=== PATIENT | female | born 1965 | race Caucasian/White ===

== ENCOUNTER → 2016-08-17 | Outpatient (CLI) | payer BC ==
[~2016-08-17] MED LIST: Iopamidol 755 MG/ML 50 ML Bottle IV STA
--- NOTE | 2016-08-17 14:52 | US ---
EXAMINATION: Right upper quadrant ultrasound HISTORY: Abnormal serum enzymes COMPARISON: CT dated 01/26/2016 TECHNIQUE: Grayscale and color Doppler images obtained of the right upper quadrant. FINDINGS: The visualized pancreas appears normal. The liver is moderately increased in generalized e chotexture. There is a lobulated cyst noted within the liver, comparable to the previous CT. Cholecy stectomy. Common bile duct measures 6 mm. The right kidney measures 11.3 cm [id number] without alicia dence of hydronephrosis. No abdominal ascites. IMPRESSION: 1. Moderate fatty infiltration of the liver. 2. Stable hepatic cysts. 3. No acute findings.
--- NOTE | 2016-08-20 17:52 | US ---
EXAMINATION: Carotid US with barraza scale and duplex imaging. HISTORY: Abnormal enzymes FINDINGS: Ultrasound examination of bilateral cervical carotid arteries was performed using barraza scale and dup jd imaging. Minimal atheromatous disease is noted within the carotid arteries bilaterally. Antegr christy flow is noted within the vertebrals.. These are the peak velocities in cm per second (systole), right and left respectively, by a comma: CCA (common carotid artery) - 73, 85 ICA (internal carotid artery) - 107, 114 ECA (External carotid artery) - 110, 99 ICA/CCA systolic ratio Right - 1.3 Left - 2.0 IMPRESSION: No significant stenosis is noted on grayscale imaging or elevated velocities identified to suggest s ignificant carotid artery stenosis.
--- NOTE | 2016-08-20 17:55 | CT ---
EXAM DATE: 08/17/16 PATIENT'S AGE: 50 Patient: JUDSON MUKHERJEE Facility: [facility] Site . Site : [id number] Study: CT-Extremity STN [id number]/5/2017 3:34:09 PM Ordering Physician: Stacy Pittman Final Report: INDICATION: Lump on left lateral neck for 1.5 years. TECHNIQUE: Performed with IV contrast. COMPARISON: None FINDINGS: There is a moderately prominent level 5 lymph node in the left mid neck at the level of the hyoid bone. This measures 13 x 10 x 8 mm (oblique AP by oblique TR by oblique CC), and lies deep to the cutaneous metallic marker. Although borderline in size, the node has a sizeable and well-defined central fatty notch. Mild numerical lymph node prominence is scattered elsewhere on both sides of the neck. No mucosal pathology is identified in the pharynx or larynx. No mass or fluid collection is identified. The parotid glands, submandibular glands and thyroid gland are symmetric and unremarkable. No abnormal contrast enhancement is identified. No worrisome skeletal lesions are identified. Previous interbody fusion from C5 through C7 where an anterior plate and screw device remains in place. No solid bony bridging across the C5-6 disc space at this time The visualized portions of the intracranial contents and apical hemithoraces are unremarkable. IMPRESSION: 1. The palpable abnormality corresponds to a moderately prominent level 5 lymph node. Although borderline in size, this has a well-defined fatty notch. 2. Numerical lymph node prominence elsewhere along both sides of the neck. 3. Postop interbody fusion from C5-C7. Dictated by Adolfo Gonzales MD @ Aug 20 2016 7:49AM Signed by: Adolfo Gonzales MD @08/20/2016 8:05:11 AM (Electronic Signature) Report Signed by Proxy and Original Signed Document filed in the Medical Record. [facility]
== END ==
LOC: MW.US 09:39
PROVIDERS: ATTEND Family Medicine
DX: R74.8 Abnormal levels of other serum enzymes (principal); M54.2 Cervicalgia; K76.0 Fatty (change of) liver, not elsewhere classified; K76.89 Other specified diseases of liver
CPT/HCPCS: 70491; 76705; Q9967; 93880; 93880-26

== ENCOUNTER → 2016-09-11 | Outpatient (CLI) | payer BC ==
--- NOTE | 2016-09-13 17:49 | US ---
EXAMINATION: Soft tissue ultrasound of the neck HISTORY: Swelling COMPARISON: CT dated 08/17/2016 TECHNIQUE: Grayscale and color Doppler images obtained within the region of concern within the left posterior neck FINDINGS: Within the region of concern there is a small lymph node. The this measures 1.3 x 0.6 cm. The cortex is hypoechoic however only measures 3 mm in thickness. There is a normal fatty hilum. IMPRESSION: 1. There is a nonpathologically enlarged lymph node noted within the region of concern with a normal configuration and a non thickened cortex consistent with a reactive node.
== END ==
LOC: MW.US 09:27
PROVIDERS: ATTEND Otolaryngology
DX: R22.1 Localized swelling, mass and lump, neck (principal); Z53.9 Procedure and treatment not carried out, unspecified reason
CPT/HCPCS: 76536-LT